=== PATIENT | female | born 1985 | race Caucasian/White ===

== ENCOUNTER 2017-02-09 20:33 | Emergency (ER) | payer BC ==
[2017-02-09 21:15] LABS: BASOPHILS 0.2 %; BASOPHILS ABSOLUTE 0.02 10/3/uL (0.0-0.16); EOSINOPHILS 2.9 %; EOSINOPHILS ABSOLUTE 0.26 10/3/uL (0.0-0.53); HEMATOCRIT 35.8 % (36.0-48.0); HEMOGLOBIN 12.7 g/dL (12.0-16.0); IMMATURE GRANULOCYTES 0.2 %; IMMATURE GRANULOCYTES ABSOLUTE 0.02 10/3/uL (0.0-0.11); LYMPHOCYTES 38.3 %; LYMPHOCYTES ABSOLUTE 3.47 10/3/uL (0.67-4.30); MANUAL DIFF NO %; MEAN CORPUS HGB CONC 35.5 g/dL (32.0-36.0); MEAN CORPUSCULAR HEMOGLOB 29.9 pg (26.0-34.0); MEAN CORPUSCULAR VOLUME 84.2 fL (80-100); MEAN PLATELET VOLUME 9.1 fL (9.2-13.0); MONOCYTES 8.3 %; MONOCYTES ABSOLUTE 0.75 10/3/uL (0.21-1.20); NEUTROPHILS 50.1 %; NEUTROPHILS ABSOLUTE 4.53 10/3/uL (2.02-8.40); PLATELET COUNT 339 10/3/uL (150-400); RBC DISTRIBUTION WIDTH 12.3 % (12.0-16.0); RED CELL COUNT 4.25 10/6/uL (4.0-5.6); WHITE BLOOD CELLS 9.1 10/3/uL (4.5-10.5)
[2017-02-09] MEDS ORDERED: MOBIC7.5 PO (21:24)
[2017-02-09] MEDS ORDERED: FLEX PO (21:24)
[2017-02-09] MEDS ORDERED: PRILOSEC40 MG PO (21:24)
[2017-02-09] MEDS ORDERED: VITAMIN B PO (21:25)
[2017-02-09] MEDS ORDERED: CENTRUM PO (21:25)
[2017-02-09 21:31] LABS: A/G RATIO 1.2 (0.7-1.9); ALBUMIN 3.7 G/DL (3.5-5.0); ALKALINE PHOSPHATASE 92 U/L (45-117); BUN (BLOOD UREA NITROGEN) 13 MG/DL (6-23); CALCIUM, SERUM 8.4 MG/DL (8.5-10.4); CHLORIDE, SERUM 111 MMOL/L (96-112); CO2 (CARBON DIOXIDE) 27 MMOL/L (24-34); CREATININE 1.07 MG/DL (0.55-1.02); DIRECT BILIRUBIN < 0.1 MG/DL (0.0-0.4); GFR AFRICAN AMERICAN 81 ML/MIN (>=60); GFR NON AFRICAN AMERICAN 70 ML/MIN (>=60); GLOBULIN 3.1 G/DL (2.5-4.1); GLUCOSE, SERUM 114 MG/DL (60-99); INDIRECT BILIRUBIN(NOT ORDER) 0.1 MG/DL (0.1-0.9); POTASSIUM, SERUM 3.9 MMOL/L (3.5-5.3); SGOT(AST) 17 U/L (5-40); SGPT(ALT) 26 U/L (5-65); SODIUM, SERUM 143 MMOL/L (135-148); TOTAL BILIRUBIN 0.2 MG/DL (0-1.2); TOTAL PROTEIN 6.8 G/DL (6.0-8.5)
[2017-02-09 23:26] LABS: ASCORBIC ACID (UR NOT ORDER) NEG (NEG); BILIRUBIN, URINE NEGATIVE (NEG); ER URINALYSIS TAT 0 Hrs 00 Mins; KETONE, URINE NEGATIVE (NEG); LEUKOCYTE ESTERASE(NOT OR MOD (NEG); NITRITE (URINE) NEG (NEG); WBC (NOT ORDERED) (RFLEX) 3 (0-5)
== END 2017-02-09 23:40 | disposition home or self-care (01) ==
LOC: ER 20:33
PROVIDERS: Emergency Medicine
DX: N39.0 Urinary tract infection, site not specified (principal); F17.200 Nicotine dependence, unspecified, uncomplicated; Z88.8 Allergy status to other drugs, medicaments and biological substances; Z91.018 Allergy to other foods; Z79.899 Other long term (current) drug therapy
CPT/HCPCS: 74177; 80053; 81001; 82248; 83690; 85025; 87040; 87086; 96374; 96375; 99284; J1170; J2405; J2550; Q9967

== ENCOUNTER 2017-02-12 12:31 | Inpatient (IN) | payer BC ==
--- NOTE | ~2017-02-12 | EGD ---
EGD REPORT [facility] [address] [address] NAME: ALESSIA BROWER : [birth year] STATUS : ADM IN PAT#: [id number] AGE: 31 ADM/REG DATE : 02/12/17 MR#: [id number] REPORT SERV DATE: 02/13/17 DICTATED BY: NIDIA CROCKER DATE: 02/13/17 REPORT STATUS : Draft TRANSCRIBED BY: [facility] DATE: 02/13/17 Endoscopy Center Patient Name: Alessia Brower Date of : 1985 Attending MD: NIDIA CROCKER, Procedure Date No Time: 02/13/2017 Procedure: Upper GI endoscopy Indications: Abdominal pain in the right lower quadrant, Generalized abdominal pain, Nausea with vomiting Medicines: Propofol per Anesthesia Complications: No immediate complications. Estimated blood loss: None. Procedure: After obtaining informed consent, the endoscope was passed under direct vision. Throughout the procedure, the patient's blood pressure, pulse, and oxygen saturations were monitored continuously. The GIF [id number] was introduced through the mouth, and advanced to the second part of duodenum. The upper GI endoscopy was accomplished with ease. The patient tolerated the procedure well. Findings: The examined esophagus was normal. The Z-line was found 39 cm from the incisors. Mild inflammation characterized by congestion (edema), erosions and erythema was found in the gastric body and in the gastric antrum. Biopsies were taken with a cold forceps for histology. Estimated blood loss: none. The duodenal bulb and 2nd part of the duodenum were normal. Impression: - Normal esophagus. - Z-line 39 cm from the incisors. - Gastritis. Biopsied. - Normal duodenal bulb and 2nd part of the duodenum. Recommendation: - [facility]. - Full liquid diet and advance as tolerated. - Use Protonix (pantoprazole) 40 mg PO daily- make sure to take in the morning on an empty stomach and then eat 30-60 minutes later. - No aspirin, ibuprofen, naproxen, or other non-steroidal anti-inflammatory drugs. - Check stool antigen for helicobacter pylori. - Await pathology results. Procedure Code(s): --- Professional --- EGD REPORT [address] [place]. [address] NAME: ALESSIA BROWER : [birth year] STATUS : ADM IN [facility]#: [id number] AGE: 31 ADM/REG DATE : 02/12/17 MR#: [id number] REPORT SERV DATE: 02/13/17 DICTATED BY: NIDIA CROCKER DATE: 02/13/17 REPORT STATUS : Draft TRANSCRIBED BY: [employer] DATE: 02/13/17 [id number], Esophagogastroduodenoscopy, flexible, transoral; with biopsy, single or multiple Diagnosis Code(s): --- Professional --- K29.70, Gastritis, unspecified, without bleeding R10.31, Right lower quadrant pain R10.84, Generalized abdominal pain R11.2, Nausea with vomiting, unspecified CPT copyright 2013 [employer]. All rights reserved. The codes documented in this report are preliminary and upon stiff neck loader review may be revised to meet current compliance requirements. NIDIA CROCKER, 02/13/2017 4:20 PM This report has been signed electronically. Number of Addenda: 0 Note Initiated On: 02/13/2017 3:59 PM Scope Withdrawal Time 0 hours 0 minutes 0 seconds [address] [place] [address]
--- NOTE | ~2017-02-12 | HP ---
History And Physical [place] [id number] [facility] [place]. [address] NAME: NICO LING : [birth year] STATUS : ADM IN [facility]#: [id number] AGE: 31 ADM/REG DATE : 02/12/17 MR#: [id number] REPORT SERV DATE: 02/12/17 DICTATED BY: EMMA GUY DATE: 02/12/17 REPORT STATUS : Draft TRANSCRIBED BY: MODL DATE: 02/12/17 DATE OF ADMISSION: 02/12/2017 REASON FOR ADMISSION: Intractable nausea and vomiting since Thursday with right upper quadrant abdominal pain and GERD, worsens when lying supine. PRIMARY CARE DOCTOR: Please see intake center notation for the name of the physician. HISTORY OF PRESENT ILLNESS: A 31-year-old female who suffers from obesity, GERD since October, pain for which she is on hydromorphone, Ketoralac, and meloxicam. The patient has additional surgical history of shoulder surgery on the right. D and C 2006, tubal ligation. The patient initially started having biliary like colic worsened with fatty foods, right upper quadrant abdominal pain with associated nausea and occasional vomiting that was bilious. Since October, she apparently saw nurse practitioner at [facility]. The patient did not get much of a result, then went to a primary care doctor thereafter, who did a CT scan, which showed no acute abdominopelvic pathology. No radiodense gallstones. No CT evidence of cholecystitis, normal small caliber appendix. Then had a gallbladder ultrasound on 02/12, today, which was totally normal except did have tenderness to ultrasound transducer compression over the gallbladder. No sonographic evidence of cholecystitis demonstrated. In fact, the CBD was only 3 mm. The patient states she is unsure if the Mobic has worsened or improved her pain. What seems to improve her pain is rest and not eating. She does not have any positional increase in pain except that GERD gets worse if she lies supine. Positive fevers. Positive chills. Positive nausea. Positive bilious emesis. No diarrhea. Infectious constipation. No chest pain. No chest pressure. No shortness of breath. FAMILY HISTORY: Hypertension in at least one parent and diverticulitis. SOCIAL HISTORY: Still smokes about five cigarettes a day. No alcohol. No drug use. ALLERGIES: PHENERGAN MAKES HER VOMIT, SEEMS TO BE A DRUG INTOLERANCE. PAST MEDICAL HISTORY: See above. REVIEW OF SYSTEMS: 10-point review of systems done, see HPI. Otherwise, negative. OBJECTIVE: VITAL SIGNS: Vitals are pending. Will be called if unstable. GENERAL: No acute distress. HEENT: PERRLA. No scleral icterus. CARDIOVASCULAR: Regular rate and rhythm. No murmur. History And Physical [address] [address] NAME: NICO LING : [birth year] STATUS : ADM IN PAT#: [id number] AGE: 31 ADM/REG DATE : 02/12/17 MR#: [id number] REPORT SERV DATE: 02/12/17 DICTATED BY: EMMA GUY DATE: 02/12/17 REPORT STATUS : Draft TRANSCRIBED BY: CHEMA DATE: 02/12/17 RESPIRATORY: Clear to auscultation bilaterally. No wheezes or crackles. ABDOMEN: She has some significant tenderness to palpation even to moderate palpation in the right upper quadrant. No rebound tenderness. No peritoneal signs. Hypoactive bowel sounds. NEURO: GCS 15. A and O x4/4. PSYCH: Normal affect and mood thus far. EXTREMITIES: No edema. No ecchymosis. LABS: These are all pending, however, in late January, she had a BMP; 143 sodium, 3.9 potassium, 27 bicarb, 1.07 creatinine, 13 BUN, 111 chloride, 114 sugar. Total protein 6.8, albumin 3.7. Lipase was normal. LFTs otherwise normal. CBC; 9.1 white count, 12.7 hemoglobin, 339,[address] abdomen and pelvis and ultrasound see above. HIDA scan, I will order myself, which is going to be pending. ASSESSMENT/PLAN: 1. Biliary colic, worsen to fatty foods, but also spicy foods. 2. Gastroesophageal reflux disease, worsens with supine position. 3. Intractable nausea and vomiting with bilious emesis. 4. History of obesity. 5. Her last menstrual period apparently was last week and this was normal. PLAN: I suspect this is possible peptic ulcer disease exacerbated by Toradol and Mobic, however, given her biliary colic symptoms for which she just may have a duodenal ulceration with intractable nausea and vomiting. She may benefit from an endoscopy. We will get a HIDA scan to confirm that she does not have any biliary pathology. We will also get a CMP, amylase, lipase. I will also, at this point, place her on PPI IV b.i.d., GI cocktail and record if she has any clinical benefit to GI cocktail that would indicate peptic ulcer disease. We will also place her on IV Dilaudid and she is already taking it. Urine beta HCG, rule out any ectopic issue. D5, LR, clear liquid, n.p.o. except medications and ice chips in case she gets an endoscopy. If she has improvement from maximum medical management for peptic ulcer disease, she may just benefit from no NSAIDs and maximum medical management. Possible endoscopy as an outpatient if that were to fail. See rest of my orders. Questions were answered. It took well over 60 minutes to do. Reference [employer]_. WST/MODL Emma Guy DO / [id number] CC: Emma Guy DO
--- NOTE | ~2017-02-12 | DS ---
Discharge Summary [place] [id number] [facility] [address]. [address] NAME: NICO LING : [birth year] STATUS : DIS IN PAT#: [id number] AGE: 31 ADM/REG DATE : 02/12/17 MR#: [id number] REPORT SERV DATE: 02/17/17 DICTATED BY: EMMA GUY DATE: 02/16/17 REPORT STATUS : Draft TRANSCRIBED BY: MODL DATE: 02/16/17 ADMISSION DATE: 02/12/2017 DISCHARGE DATE: 02/16/2017 ADDENDUM: HIDA scan is normal, please see prior discharge instructions. DICTATED BY: Emma Guy DO WSStephanie/CHEMA Emma Guy DO / [id number] CC: Emma Guy DO
--- NOTE | ~2017-02-12 | CN ---
Consultation Report [facility] [address] [place]. [address] NAME: NICO LING : [birth year] STATUS : ADM IN PAT#: [id number] AGE: 31 ADM/REG DATE : 02/12/17 MR#: [id number] REPORT SERV DATE: 02/13/17 DICTATED BY: NIDIA SHELTON DATE: 02/13/17 REPORT STATUS : Draft TRANSCRIBED BY: MODJamshid DATE: 02/13/17 GI CONSULTATION DATE OF CONSULTATION: HISTORY OF PRESENT ILLNESS: The patient is a 31-year-old female with no significant past medical history, who presents with right upper quadrant pain, nausea, vomiting. Liver enzymes and lipase were found to be normal. White count was found to be normal. Ultrasound showed normal-appearing liver, gallbladder was normal. No biliary dilatation. Common bile duct was measured to be normal, but she did have a sonographic Melendrez's sign. CT scan done on 02/09/2017 was also found to have no acute findings. She is ordered for HIDA scan tomorrow. PAST MEDICAL HISTORY: No significant past medical history. MEDICATIONS: Reviewed. ALLERGIES: REVIEWED. PHYSICAL EXAMINATION: VITAL SIGNS: The patient is afebrile. Vital signs are stable. GENERAL: The patient appears distraught with easy crying and in mild distress secondary to anxiety as well as her abdominal discomfort. HEENT: Atraumatic, normocephalic. Anicteric. Mucous membranes moist. CARDIAC: S1, S2. CHEST: Clear. ABDOMEN: Soft, but tender to even minimal palpation diffusely. LABORATORY DATA: Showed WBC 9.1, hemoglobin 12.7, hematocrit 35.8, platelets 339. Lactate 0.8. Sodium 141, potassium 3.8, chloride 106, bicarb 29, BUN 8, creatinine 0.94, glucose 94. TSH normal. Liver enzymes and lipase normal. Albumin is 4. CT scan and ultrasound as dictated above. IMPRESSION AND PLAN: Right-sided abdominal pain of unclear etiology. Await HIDA scan. Would also check stool antigen for H. pylori. KUB had also been ordered for tomorrow. We will follow up on these results. If normal, would consider EGD for further evaluation. TUNG/CHEMA Nidia Shelton MD Consultation Report [place] [id number] [facility] [address] [address] NAME: NICO LING : [birth year] STATUS : ADM IN PAT#: [id number] AGE: 31 ADM/REG DATE : 02/12/17 MR#: [id number] REPORT SERV DATE: 02/13/17 DICTATED BY: NIDIA SHELTON DATE: 02/13/17 REPORT STATUS : Draft TRANSCRIBED BY: MODL DATE: 02/13/17 / [id number] CC: Kofi Oconnell DO
--- NOTE | ~2017-02-12 | DS ---
Discharge Summary [facility] [address] [place]. [address] NAME: NICO LING : [birth year] STATUS : ADM IN PAT#: [id number] AGE: 31 ADM/REG DATE : 02/12/17 MR#: [id number] REPORT SERV DATE: 02/16/17 DICTATED BY: EMMA GUY DATE: 02/15/17 REPORT STATUS : Draft TRANSCRIBED BY: MODL DATE: 02/15/17 ADMISSION DATE: 02/12/2017 DISCHARGE DATE: 02/15/2017 HOSPITAL COURSE: This is a pleasant, 31-year-old, obese female who suffers from GERD since 10/2016. As an outpatient, she was prescribed Dilaudid, Ketoralac, and Mobic. Known history of D and C, 2006; tubal ligation; surgical history of shoulder surgery on the right. The patient came in as a direct admission request from primary care physician for biliary colic-like symptoms which worsened with fatty foods and spicy foods as well. Right upper quadrant abdominal pain that would wax and wane. It would wax with food and wane with being still and not eating. She apparently previously saw a nurse practitioner at [facility]. There was not much of a result from that. Then, she started seeing her primary care physician and did a CT of the abdomen. It did not show any pathology whatsoever. No radiodense gallstones, no CT evidence of cholecystitis. Normal small caliber appendix. Then, she had a gallbladder ultrasound on 02/12/2017 that was totally normal. CBD was only 3 mm; however, she did have tenderness to ultrasound transducer compression over the gallbladder. Her LFTs had been normal here. She came in. I was concerned about possible peptic ulcer disease due to Ketoralac and Mobic, and as a result, GI did an endoscopy which showed gastritis. This was biopsied with recommendation for Protonix 40 p.o. daily. Make sure she takes on an empty stomach and eats 30 to 60 minutes thereafter. No NSAID abuse. I had a delay in getting the HIDA scan because the patient had Dilaudid prior to the HIDA scan. The patient does not want to wait till Thursday as it is over the weekend to get the HIDA scan. As a result, given low index of suspicion for any biliary colic, and it rather more likely is gastritis worsened by NSAIDs, would get the HIDA scan as an outpatient and continue her PPI p.o. daily. She may have a component of irritable bowel syndrome. As a result, I started her yesterday on dicyclomine. She has been used to taking Dilaudid as an outpatient. We will need to taper that down as an outpatient. She would like to go home today. She is tolerating a clear liquid diet, will advance slowly. Educated the patient about this. She will follow up with GI in four weeks and schedule outpatient HIDA in one week. Discharge home if okay with GI. DISCHARGE DIAGNOSES: History of NSAID abuse; smoking cessation; GERD; right upper quadrant abdominal pain; nausea/vomiting, improved; pain. DISCHARGE MEDICATIONS: Dicyclomine 20 p.o. before meals; multivitamin tablet p.o. daily; nicotine transdermal patch 14 mg patch daily; Prilosec 40 p.o. daily; Zanaflex p.r.n.; Zofran 4 p.o. q.6 p.r.n.; Flexeril 10 p.o. t.i.d. p.r.n.; Dilaudid 1/2 tablet 2 mg p.o. q.6 p.r.n., we will try to taper that down as an outpatient. I gave the patient Tylenol here in the hospital, barring any narcotics regarding her HIDA scan. Her pain was not fully quelled. CONSULTS: Gastrointestinal. Discharge Summary [address] [address] NAME: NICO LING : [birth year] STATUS : ADM IN [facility]#: [id number] AGE: 31 ADM/REG DATE : 02/12/17 MR#: [id number] REPORT SERV DATE: 02/16/17 DICTATED BY: EMMA GUY DATE: 02/15/17 REPORT STATUS : Draft TRANSCRIBED BY: CHEMA DATE: 02/15/17 PROCEDURES: Endoscopy. All questions were answered. It took well over 30 minutes to do. DICTATED BY: DO SEDRICK Rivas/CHEMA Emma Guy, / [id number]
[~2017-02-12 12:31] MED LIST: CENTRUM PO; FLEX PO; MOBIC7.5 PO; PRILOSEC40 MG PO; VITAMIN B PO
[2017-02-12] MEDS ORDERED: PRILOSEC40 MG PO (13:07)
[2017-02-12] MEDS ORDERED: MULTIVITAMI1 PO (13:08)
[2017-02-12] MEDS ORDERED: VITAMIN B PO (13:08)
[2017-02-12] MEDS ORDERED: MOBIC7.5 PO (13:09)
[2017-02-12] MEDS ORDERED: ZOFRAN4 PO (13:11)
[2017-02-12] MEDS ORDERED: FLEX PO (13:12)
[2017-02-12] MEDS ORDERED: ZANAFLEX 4 MG TA4 MG PO (13:14)
[2017-02-12] MEDS ORDERED: TORATAB PO (13:16)
[2017-02-12] MEDS ORDERED: DIL2TAB PO (13:17)
[2017-02-12 17:23] LABS: A/G RATIO 1.3 (0.7-1.9); ALKALINE PHOSPHATASE 89 U/L (45-117); BUN (BLOOD UREA NITROGEN) 8 MG/DL (6-23); CHLORIDE, SERUM 106 MMOL/L (96-112); CO2 (CARBON DIOXIDE) 29 MMOL/L (24-34); CREATININE 0.94 MG/DL (0.55-1.02); GFR AFRICAN AMERICAN 94 ML/MIN (>=60); GFR NON AFRICAN AMERICAN 81 ML/MIN (>=60); GLOBULIN 3.2 G/DL (2.5-4.1); GLUCOSE, SERUM 94 MG/DL (60-99); PHOSPHORUS, SERUM 3.6 MG/DL (2.5-4.5); POTASSIUM, SERUM 3.8 MMOL/L (3.5-5.3); SGOT(AST) 16 U/L (5-40); SGPT(ALT) 24 U/L (5-65); SODIUM, SERUM 141 MMOL/L (135-148); TOTAL BILIRUBIN 0.6 MG/DL (0-1.2); TOTAL PROTEIN 7.2 G/DL (6.0-8.5); TROPONIN I <0.02 NG/ML (<0.05); ULTRASENSITIVE TSH 0.735 MCIU/ML (0.358-3.740)
[2017-02-12 18:14] LABS: PROCALCITONIN <0.05 ng/mL (<0.5)
[2017-02-12 21:02] LABS: BASOPHILS 0.3 %; BASOPHILS ABSOLUTE 0.02 10/3/uL (0.0-0.16); EOSINOPHILS 3.8 %; EOSINOPHILS ABSOLUTE 0.27 10/3/uL (0.0-0.53); HEMOGLOBIN 12.2 g/dL (12.0-16.0); IMMATURE GRANULOCYTES 0.3 %; IMMATURE GRANULOCYTES ABSOLUTE 0.02 10/3/uL (0.0-0.11); LYMPHOCYTES 43.2 %; LYMPHOCYTES ABSOLUTE 3.08 10/3/uL (0.67-4.30); MEAN CORPUS HGB CONC 34.9 g/dL (32.0-36.0); MEAN CORPUSCULAR HEMOGLOB 29.5 pg (26.0-34.0); MEAN CORPUSCULAR VOLUME 84.5 fL (80-100); MEAN PLATELET VOLUME 9.2 fL (9.2-13.0); MONOCYTES 10.1 %; MONOCYTES ABSOLUTE 0.72 10/3/uL (0.21-1.20); NEUTROPHILS 42.3 %; NEUTROPHILS ABSOLUTE 3.02 10/3/uL (2.02-8.40); PLATELET COUNT 305 10/3/uL (150-400); RBC DISTRIBUTION WIDTH 12.5 % (12.0-16.0); RED CELL COUNT 4.14 10/6/uL (4.0-5.6); WHITE BLOOD CELLS 7.1 10/3/uL (4.5-10.5)
[2017-02-12 21:03] LABS: MANUAL DIFF NO %
[2017-02-12 21:24] LABS: GLYCOHEMOGLOBIN (HbA1c) 5.2 % (4.7-6.1)
[2017-02-13 05:02] LABS: BASOPHILS 0.3 %; BASOPHILS ABSOLUTE 0.02 10/3/uL (0.0-0.16); EOSINOPHILS 4.9 %; EOSINOPHILS ABSOLUTE 0.31 10/3/uL (0.0-0.53); HEMATOCRIT 35.3 % (36.0-48.0); HEMOGLOBIN 12.3 g/dL (12.0-16.0); IMMATURE GRANULOCYTES 0.2 %; IMMATURE GRANULOCYTES ABSOLUTE 0.01 10/3/uL (0.0-0.11); LYMPHOCYTES 46.9 %; LYMPHOCYTES ABSOLUTE 2.99 10/3/uL (0.67-4.30); MEAN CORPUS HGB CONC 34.8 g/dL (32.0-36.0); MEAN CORPUSCULAR HEMOGLOB 29.8 pg (26.0-34.0); MEAN CORPUSCULAR VOLUME 85.5 fL (80-100); MEAN PLATELET VOLUME 9.5 fL (9.2-13.0); MONOCYTES 9.9 %; MONOCYTES ABSOLUTE 0.63 10/3/uL (0.21-1.20); NEUTROPHILS 37.8 %; NEUTROPHILS ABSOLUTE 2.42 10/3/uL (2.02-8.40); PLATELET COUNT 307 10/3/uL (150-400); RBC DISTRIBUTION WIDTH 12.3 % (12.0-16.0); RED CELL COUNT 4.13 10/6/uL (4.0-5.6); WHITE BLOOD CELLS 6.4 10/3/uL (4.5-10.5)
[2017-02-13 05:03] LABS: MANUAL DIFF NO %
[2017-02-13 05:15] LABS: BUN (BLOOD UREA NITROGEN) 10 MG/DL (6-23); CHLORIDE, SERUM 106 MMOL/L (96-112); CO2 (CARBON DIOXIDE) 31 MMOL/L (24-34); CREATININE 1.08 MG/DL (0.55-1.02); GFR AFRICAN AMERICAN 80 ML/MIN (>=60); GFR NON AFRICAN AMERICAN 69 ML/MIN (>=60); GLUCOSE, SERUM 92 MG/DL (60-99); PHOSPHORUS, SERUM 3.7 MG/DL (2.5-4.5); POTASSIUM, SERUM 3.9 MMOL/L (3.5-5.3); SODIUM, SERUM 143 MMOL/L (135-148)
[2017-02-13 05:17] LABS: CALCIUM, SERUM 8.7 MG/DL (8.5-10.4)
[2017-02-14 06:13] LABS: BASOPHILS 0.2 %; BASOPHILS ABSOLUTE 0.01 10/3/uL (0.0-0.16); EOSINOPHILS 4.7 %; EOSINOPHILS ABSOLUTE 0.25 10/3/uL (0.0-0.53); HEMATOCRIT 35.5 % (36.0-48.0); HEMOGLOBIN 12.3 g/dL (12.0-16.0); IMMATURE GRANULOCYTES 0.2 %; IMMATURE GRANULOCYTES ABSOLUTE 0.01 10/3/uL (0.0-0.11); LYMPHOCYTES ABSOLUTE 2.19 10/3/uL (0.67-4.30); MEAN CORPUS HGB CONC 34.6 g/dL (32.0-36.0); MEAN CORPUSCULAR HEMOGLOB 29.2 pg (26.0-34.0); MEAN CORPUSCULAR VOLUME 84.3 fL (80-100); MEAN PLATELET VOLUME 9.4 fL (9.2-13.0); MONOCYTES 9.9 %; MONOCYTES ABSOLUTE 0.53 10/3/uL (0.21-1.20); NEUTROPHILS ABSOLUTE 2.35 10/3/uL (2.02-8.40); PLATELET COUNT 303 10/3/uL (150-400); RBC DISTRIBUTION WIDTH 12.4 % (12.0-16.0); RED CELL COUNT 4.21 10/6/uL (4.0-5.6); WHITE BLOOD CELLS 5.3 10/3/uL (4.5-10.5)
[2017-02-14 06:14] LABS: MANUAL DIFF NO %
[2017-02-14 06:15] LABS: BUN (BLOOD UREA NITROGEN) 8 MG/DL (6-23); CHLORIDE, SERUM 108 MMOL/L (96-112); CO2 (CARBON DIOXIDE) 29 MMOL/L (24-34); CREATININE 0.96 MG/DL (0.55-1.02); GFR AFRICAN AMERICAN 92 ML/MIN (>=60); GFR NON AFRICAN AMERICAN 79 ML/MIN (>=60); GLUCOSE, SERUM 94 MG/DL (60-99); PHOSPHORUS, SERUM 3.4 MG/DL (2.5-4.5); POTASSIUM, SERUM 3.5 MMOL/L (3.5-5.3); SODIUM, SERUM 142 MMOL/L (135-148)
[2017-02-15 07:43] LABS: BASOPHILS 0.4 %; BASOPHILS ABSOLUTE 0.02 10/3/uL (0.0-0.16); EOSINOPHILS 3.9 %; EOSINOPHILS ABSOLUTE 0.21 10/3/uL (0.0-0.53); HEMOGLOBIN 12.6 g/dL (12.0-16.0); IMMATURE GRANULOCYTES 0.2 %; IMMATURE GRANULOCYTES ABSOLUTE 0.01 10/3/uL (0.0-0.11); LYMPHOCYTES 42.4 %; LYMPHOCYTES ABSOLUTE 2.29 10/3/uL (0.67-4.30); MEAN CORPUSCULAR HEMOGLOB 29.6 pg (26.0-34.0); MEAN CORPUSCULAR VOLUME 84.7 fL (80-100); MEAN PLATELET VOLUME 9.1 fL (9.2-13.0); MONOCYTES 8.7 %; MONOCYTES ABSOLUTE 0.47 10/3/uL (0.21-1.20); NEUTROPHILS 44.4 %; PLATELET COUNT 293 10/3/uL (150-400); RBC DISTRIBUTION WIDTH 12.5 % (12.0-16.0); RED CELL COUNT 4.25 10/6/uL (4.0-5.6); WHITE BLOOD CELLS 5.4 10/3/uL (4.5-10.5)
[2017-02-15 07:46] LABS: MANUAL DIFF NO %
[2017-02-15 07:55] LABS: BUN (BLOOD UREA NITROGEN) 5 MG/DL (6-23); CALCIUM, SERUM 8.7 MG/DL (8.5-10.4); CHLORIDE, SERUM 109 MMOL/L (96-112); CO2 (CARBON DIOXIDE) 29 MMOL/L (24-34); CREATININE 1.07 MG/DL (0.55-1.02); GFR AFRICAN AMERICAN 81 ML/MIN (>=60); GFR NON AFRICAN AMERICAN 70 ML/MIN (>=60); GLUCOSE, SERUM 100 MG/DL (60-99); PHOSPHORUS, SERUM 3.1 MG/DL (2.5-4.5); POTASSIUM, SERUM 4.2 MMOL/L (3.5-5.3); SODIUM, SERUM 144 MMOL/L (135-148)
[2017-02-15] MEDS ORDERED: HABIT14 TOP (10:41)
[2017-02-15] MEDS ORDERED: ZOFRAN4 PO (10:41)
[2017-02-15] MEDS ORDERED: PROTONIX PO (10:42)
[2017-02-15] MEDS ORDERED: BENTYL20 PO (10:43)
== END 2017-02-16 14:52 | disposition home or self-care (01) | DRG 392 ==
LOC: 4SO 12:31
PROVIDERS: Internal Medicine; Internal Medicine Gastroenterology
PROC: 0DB68ZX Excision of Stomach, Via Natural or Artificial Opening Endoscopic, Diagnostic (ICD-10-PCS; principal; 2017-02-13 16:11)
DX: K29.60 Other gastritis without bleeding (principal); N39.0 Urinary tract infection, site not specified; E66.9 Obesity, unspecified; T39.395A Adverse effect of other nonsteroidal anti-inflammatory drugs [NSAID], initial encounter; K21.9 Gastro-esophageal reflux disease without esophagitis; Y92.9 Unspecified place or not applicable; F17.210 Nicotine dependence, cigarettes, uncomplicated; Z88.8 Allergy status to other drugs, medicaments and biological substances; Z91.018 Allergy to other foods; Z79.899 Other long term (current) drug therapy
CPT/HCPCS: 74000; 74177; 76705; 78226; 78227; 80048; 80053; 81001; 82140; 82150; 82248; 82962; 83036; 83605; 83690; 83735; 84100; 84145; 84443; 84484; 84703; 85025; 87040; 87086; 87338; 88305; 93005; 96374; 96375; 99284; A9270-GY; A9537; C9113; J1170; J2405; J2550; J2805; Q9967